=== PATIENT | female | born 1980 | race Caucasian/White ===

== ENCOUNTER 2016-09-08 16:03 | Emergency (ER) | payer SELFPAY ==
[~2016-09-08] VITALS: Ht 154.9 cm; Wt 47.7 kg
[~2016-09-08 16:03] MED LIST: METR-1 PO
[2016-09-08 16:50] VITALS: BP 103/69; PULSE 66; RESP 20; TEMP 98.3; O2SAT 100
--- NOTE | 2016-09-08 17:23 | PD ---
HPI Chief Complaint: Musculoskeletal Complaint Time Seen by Provider: 17:07 Travel History International Travel<30 days: No Contact w/Intl Traveler<30days: No Traveled to known affect area: No History of Present Illness HPI The patient was seen and examined in the presence of the nurse. She complains of a left hand pain. She says she fell at one month ago and developed swelling to the third and fourth fingers. She did not get it evaluated but still it persists with swelling and pain. Also she reports some vaginal discharge that she is sure is bacterial vaginosis. She says she's had it before and symptoms of the same and she requests metronidazole treatment. Severity is mild to moderate. PFSH Past Medical History : 4 Para: 3 : 1 Past Surgical History Abdominal Surgery: Yes (RIGHT LUNG PARTIALLY REMOVED) Social History Alcohol Use: No Tobacco Use: No Substance Use: No (MARIJUANA OCC) Allergies-Medications (Allergen,Severity, Reaction): Coded Allergies: Codeine (Verified Allergy, Severe, Swelling, 09/08/16) Reported Meds & Prescriptions Reported Meds & Active Scripts Active Flagyl (Metronidazole) 500 Mg Tab 500 Mg PO BID 7 Days TAKE UNTIL GONE Review of Systems General / Constitutional: No: Fever HENT: No: Headaches Cardiovascular: No: Chest Pain or Discomfort Physical Exam Narrative GASTROINTESTINAL: Abdomen soft, non-tender, nondistended. Positive bowel sounds. No hepato-splenomegaly, or palpable masses. No guarding. SKIN: Inspection shows no rash or ulcers. Palpation shows no induration or nodules. Left hand: There is some swelling tenderness to the third and fourth PIP joint area. Left hand is neurovascularly intact. Data Data Last Documented VS Vital Signs Date Time Temp Pulse Resp B/P Pulse Ox O2 Delivery O2 Flow Rate FiO2 09/08/16 16:50 98.3 66 20 103/69 100 Orders Hand, Complete ([id number]) (09/08/16 ) MDM Medical Decision Making Medical Screen Exam Complete: Yes Emergency Medical Condition: Yes Medical Record Reviewed: Yes Differential Diagnosis hAnd fracture, soft tissue injury of the hand, vaginitis Narrative Course I have reviewed the patient's electronic medical record. I recommended and ordered and she initially agreed to hand x-ray. She later refused and it was canceled. Recommending hand physician follow-up for that Decline pelvic exam and just wanted a prescription for metronidazole She is aware can't verify that is what is really going on or rule out other issues. She denies and does not want any testing done Diagnosis Primary Impression: Injury of left hand Qualified Code: S69.92XA - Injury of left hand, initial encounter Additional Impression: Vaginitis Qualified Code: N76.0 - Acute vaginitis Additional Instructions: The patient was advised to follow up with their physician and return if they worsen. Med/Other Pt SpecificInfo: Prescription(s) given Disposition: 01 DISCHARGE HOME Condition: Stable Erik Aguilera MD Sep 08, 2016 17:23
[2016-09-08] MEDS ORDERED: METR-1 PO (17:26)
== END 2016-09-08 17:30 | disposition home or self-care (01) ==
LOC: PHED 16:03
DX: S69.92XA Unspecified injury of left wrist, hand and finger(s), initial encounter (principal); N76.0 Acute vaginitis; W19.XXXA Unspecified fall, initial encounter
CPT/HCPCS: 73130; 99283

== ENCOUNTER 2016-12-14 18:41 | Inpatient (IN) | payer SELFPAY ==
[2016-12-13 23:45] VITALS: BP 95/60; PULSE 85; RESP 17; TEMP 97.1; O2SAT 99
[~2016-12-14] VITALS: Ht 157.5 cm; Wt 52.0 kg
[2016-12-14 18:44] VITALS: BP 122/75; PULSE 103; RESP 16; TEMP 98.1; O2SAT 100
--- NOTE | 2016-12-14 19:36 | PD ---
Physical Exam Date Seen by Provider: Dec 14, 2016 Time Seen by Provider: 19:31 Narrative 36 YOWF C/O 3 DAYS OF DYSURIA AND HEMATURIA. NOW N/V, PAIN UP INTO HER CHEST. POS FEVER/CHILLS , WEAKNESS,BACK PAIN. D/C FROM [facility] 10 DAYS AGO FOR SIMILAR SYMPTOMS VS NOTED. PT AWAITING BED PLACEMENT Data Data Last Documented VS Vital Signs Date Time Temp Pulse Resp B/P Pulse Ox O2 Delivery O2 Flow Rate FiO2 12/14/16 18:44 98.1 103 16 122/75 100 MDM Medical Record Reviewed: Yes Supervised Visit with PHILOMENA: Yes Bjorn Batista Dec 14, 2016 19:36
--- NOTE | 2016-12-14 19:51 | PD ---
HPI Chief Complaint: Complaint Time Seen by Provider: 19:47 Travel History International Travel<30 days: No Contact w/Intl Traveler<30days: No Traveled to known affect area: No History of Present Illness HPI The patient is a 36 year old female who presents to the [facility] emergency department with a history of reportedly beginning to feel ill 3 days ago. She reports that she's had bilateral flank pain that is 10 out of 10 in severity, dysuria, hematuria, urinary urgency, and frequency. Her past recent history is, located by being admitted for 10 days at [facility], discharged sometime around November 30. She reports that she was admitted for an infection and elevated white blood cell count. She was not discharged on antibiotic as she completed the antibiotic in the hospital. The patient reports that today she began to have nausea and vomiting. She reports that she' s had vomiting 5-6 times today. She reports that she began to have a fever today, MAXIMUM TEMPERATURE of 101.2. She reports having chronic issues with constipation, however she did move her bowels in small amount today. She denies having any diarrhea. She denies having any cough or congestion. She denies having any sore throat. She reports on review of systems that she has had some ear pain bilaterally. The patient denies any recent fevers, cough, congestion, neck pain, chest pain, shortness of breath, or neurologic symptoms. 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 The patient reports that this was a complication related to IV drug use many years ago. Diminished Hearing: No Pneumonia: Yes ?: Not LMP: 11/23/16 : 4 Para: 3 : 1 Past Surgical History Narrative Surgical The patient's past surgical history is significant for a partial lobectomy on the right. Abdominal Surgery: Yes (RIGHT LUNG PARTIALLY REMOVED) Social History Alcohol Use: No Tobacco Use: No Substance Use: No (MARIJUANA OCC, reported prior history of IV drug use many years ago) Allergies-Medications (Allergen,Severity, Reaction): Coded Allergies: Codeine (Verified Allergy, Severe, Swelling, 12/14/16) Reported Meds & Prescriptions Reported Meds & Active Scripts Active None. Review of Systems Except as stated in HPI: all other systems reviewed are Neg General / Constitutional: Positive: Fever, Chills Eyes: No: Visual changes HENT: Positive: Earache (bilateral), No: Headaches, Sore Throat, Rhinorrhea, Congestion, Neck Stiffness, Neck Pain Cardiovascular: No: Chest Pain or Discomfort, Dyspnea on exertion Respiratory: No: Shortness of Breath Gastrointestinal: No: Abdominal Pain Genitourinary: Positive: Urgency, Frequency, Dysuria, Hematuria, Flank Pain Musculoskeletal: No: Pain Skin: No Rash Neurologic: No: Weakness, Focal Abnormalities, Change in Mentation, Slurred Speech, Sensory Disturbance Psychiatric: No: Depression Endocrine: No: Polydipsia Hematologic/Lymphatic: No: Easy Bruising Physical Exam Narrative General: The patient is a well-developed well-nourished female in no acute distress. Head and Neck exam: Head is normocephalic atraumatic. Eyes: EOMI, pupils are equal round and reactive to light. Nose: Midline septum with pink mucous membranes Mouth: Dentition unremarkable. Moist mucus membranes. Posterior oropharynx is not erythematous. No tonsillar hypertrophy. Uvula midline. Airway patent. Ears: Bilateral tympanic membranes are pearly with a good cone of light, no erythema or exudate. External auditory canals shows no erythema or edema, no drainage. Neck: No palpable lymphadenopathy. No nuchal rigidity. No thyromegaly. Cardiovascular: Sinus tachycardia in the 1 teens without murmurs, gallops, or rubs. No pulse deficit to the extremities on simultaneous auscultation and palpation of her radial artery. Lungs: Clear to auscultation bilaterally. No wheezes, rhonchi, or rales. Abdomen: Soft, without tenderness to palpation in all 4 quadrants of the abdomen. No guarding, rebound, or rigidity. Normal bowel sounds are audible. No tenderness on palpation of McBurney's point. Negative [place] sign. Extremities: No clubbing, cyanosis, or edema. No calf tenderness on palpation. Back: No spinous process tenderness to palpation. No costovertebral angle tenderness to palpation. Neurologic Exam: Grossly nonfocal. Skin Exam: No rash noted. Intact skin that is warm and dry. The patient has older appearing track mendez in bilateral antecubital fossa. Data Data Last Documented VS Vital Signs Date Time Temp Pulse Resp B/P Pulse Ox O2 Delivery O2 Flow Rate FiO2 12/14/16 21:46 96 18 117/73 99 Room Air 12/14/16 19:56 101.2 Orders Electrocardiogram (12/14/16 19:54) Complete Blood Count With Diff (12/14/16 19:54) Comprehensive Metabolic Panel (12/14/16 19:54) Blood Culture (12/14/16 19:54) C-Reactive Protein (Crp) (12/14/16 19:54) Lipase (12/14/16 19:54) Urinalysis - C+S If Indicated (12/14/16 19:54) Westergren Sedimentation Rate (12/14/16 19:54) Magnesium (Mg) (12/14/16 19:54) Chest, Single Ap (12/14/16 19:54) Iv Access Insert/Monitor (12/14/16 19:54) Ecg Monitoring (12/14/16 19:54) Oximetry (12/14/16 19:54) Ed Urine Pregnancytest Poc (12/14/16 19:54) Drug Screen, Random Urine (12/14/16 19:54) Lactic Acid Sepsis Protocol (12/14/16 19:54) Sodium Chlor 0.9% 1000 Ml Inj (Ns 1000 M (12/14/16 20:15) Ondansetron Inj (Zofran Inj) (12/14/16 20:15) Acetaminophen (Tylenol) (12/14/16 20:15) Piperacil-Tazo 3.375 Gm Premix (Zosyn 3. (12/14/16 20:15) Vancomycin Inj (Vancomycin Inj) (12/14/16 20:15) Ct Abd/Pel W/O Iv Contrast (12/14/16 20:05) Urine Culture (12/14/16 20:30) Sodium Chlor 0.9% 1000 Ml Inj (Ns 1000 M (12/14/16 21:30) Admit Order (Ed Use Only) (12/14/16 21:43) Labs Laboratory Tests Test 12/14/16 20:30 Erythrocyte Sedimentation Rate 28 mm/hr Sodium Level 135 MEQ/L Potassium Level 3.8 MEQ/L Chloride Level 101 MEQ/L Carbon Dioxide Level 25.1 MEQ/L Anion Gap 9 MEQ/L Blood Urea Nitrogen 7 MG/DL Creatinine 0.76 MG/DL Estimat Glomerular Filtration 85 ML/MIN Rate Random Glucose 124 MG/DL Lactic Acid Level 2.8 mmol/L Calcium Level 8.5 MG/DL Magnesium Level 1.5 MG/DL Total Bilirubin 0.4 MG/DL Aspartate Amino Transf 24 U/L (AST/SGOT) Alanine Aminotransferase 50 U/L (ALT/SGPT) Alkaline Phosphatase 107 U/L C-Reactive Protein 11.00 MG/DL Total Protein 6.9 GM/DL Albumin 2.9 GM/DL Lipase 35 U/L Urine Opiates Screen POS Urine Barbiturates Screen NEG Urine Amphetamines Screen NEG Urine Benzodiazepines Screen NEG Urine Cocaine Screen NEG Urine Cannabinoids Screen POS White Blood Count 20.1 TH/MM3 Red Blood Count 3.76 MIL/MM3 Hemoglobin 10.4 GM/DL Hematocrit 30.4 % Mean Corpuscular Volume 80.7 FL Mean Corpuscular Hemoglobin 27.6 PG Mean Corpuscular Hemoglobin 34.2 % Concent Red Cell Distribution Width 15.1 % Platelet Count 216 TH/MM3 Mean Platelet Volume 9.1 FL Neutrophils (%) (Auto) 87.2 % Lymphocytes (%) (Auto) 4.5 % Monocytes (%) (Auto) 8.0 % Eosinophils (%) (Auto) 0.1 % Basophils (%) (Auto) 0.2 % Neutrophils # (Auto) 17.6 TH/MM3 Lymphocytes # (Auto) 0.9 TH/MM3 Monocytes # (Auto) 1.6 TH/MM3 Eosinophils # (Auto) 0.0 TH/MM3 Basophils # (Auto) 0.0 TH/MM3 CBC Comment AUTO DIFF Differential Comment AUTO DIFF CONFIRMED Platelet Estimate NORMAL Platelet Morphology Comment NORMAL Red Cell Morphology Comment NORMAL Urine Color YELLOW Urine Turbidity HAZY Urine pH 6.5 Urine Specific [place] 1.013 Urine Protein 100 mg/dL Urine Glucose (UA) NEG mg/dL Urine Ketones NEG mg/dL Urine Occult Blood SMALL Urine Nitrite POS Urine Bilirubin NEG Urine Urobilinogen LESS THAN 2.0 MG/DL Urine Leukocyte Esterase LARGE Urine RBC 27 /hpf Urine WBC /hpf Urine WBC Clumps FEW Urine Squamous Epithelial 1 /hpf Cells Urine Transitional Epithelial 1 /hpf Cells Urine Bacteria MOD /hpf Urine Mucus FEW /lpf Urine Yeast (Budding) OCC Microscopic Urinalysis Comment CULTURE INDICATED MDM Medical Decision Making Medical Screen Exam Complete: Yes Emergency Medical Condition: Yes Medical Record Reviewed: Yes Interpretation(s) Last Impressions Abdomen/Pelvis CT 12/14/162004 Signed Impressions: Service Date/Time: Wednesday, December 14, 2016 22:32 - CONCLUSION: 1. No acute findings identified within the abdomen and pelvis. Specifically no hydronephrosis or renal calculi are seen. There is mild constipation. Bjorn Cade MD Chest X-Ray 12/14/161953 Signed Impressions: Service Date/Time: Wednesday, December 14, 2016 19:52 - CONCLUSION: 1. No active disease. Bjorn Cade MD Differential Diagnosis Sepsis related to pyelonephritis, versus pneumonia, versus sepsis of undetermined cause, versus pyelonephritis uncomplicated, versus cystitis Narrative Course During the course of the patients emergency department visit, the patients history, examination, and differential diagnosis were reviewed with the patient. The patient had IV access obtained and blood work sent for analysis. The patient was placed on a quality assurance monitor with oximetry and blood pressure monitoring. The patient had an EKG done on arrival that shows a sinus tachycardia rate of 105, nonspecific ST abnormalities, no elevation is noted, no depression noted. T waves are inverted in V1. A review the patient's electronic medical record reveals that the patient had a UTI positive for Escherichia coli was salguero sensitive in September 2016. The patient was provided normal saline 1 L IV fluid bolus. The patient was started on vancomycin 1 g IV, Zosyn 3.375 g IV. The patients laboratory studies were reviewed and remarkable for a white count of 20.1, hemoglobin 10.4, platelets 216 with 87.2 neutrophils, lymphocytes 4.5. Sodium is 135, glucose 124, C-reactive protein is 11, lipase 35, urinalysis shows positive nitrite and large leukocyte esterase 27 RBCs wbc's enumerable with few clumps and moderate bacteria, culture indicated. Lactic acid is 2.8. The patient was given a second liter of normal saline IV fluids. A bedside test was negative. Radiology studies were reviewed and remarkable for a chest x-ray that shows no acute abnormality. CT scan of the abdomen and pelvis showed no acute abnormality, constipation noted. The patient has positive Sirs criteria and sepsis criteria with the source of pyelonephritis. The patient's results were discussed with the patient, including the plan of care. I explained that further testing and/ or monitoring is indicated based on the patients history, examination, and/ or laboratory findings. Therefore, I recommended admission for additional evaluation. The patient expressed understanding and was agreeable with this plan. The patient was admitted to the hospital in guarded condition and [facility] Sepsis Criteria SIRS Criteria (2 or more): Temp > 100.9 or < 96.8, Heart rate over 90, WBC > 31167, < 4000 or > 10% bands Sepsis Criteria (SIRS+source): Infect source susp/known Criteria Outcome: Meets SIRS criteria, Meets sepsis criteria Physician Communication Physician Communication The patient's case was discussed with Dr. Pereira who did agree to admit the patient for further evaluation and treatment at this time. Diagnosis Primary Impression: Pyelonephritis Additional Impression: Sepsis Qualified Code: A41.9 - Sepsis, due to unspecified organism Admitting Information Admitting Physician Requests: it Lyric Ramirez MD Dec 14, 2016 19:51
[2016-12-14 19:56] VITALS: BP 117/73; PULSE 110; RESP 16; TEMP 101.2; O2SAT 99
[2016-12-14] MEDS ORDERED: ACETAMINOPHEN 325 MG TAB PO ONE (20:15)
[2016-12-14] MEDS ORDERED: SODIUM CHLOR 0.9% 1000 ML INJ 1,000 ML IV ONE ×2 (20:15→21:30)
[2016-12-14] MEDS ORDERED: ONDANSETRON HCL 4 MG/2 ML VIAL IV ONE (20:15)
[2016-12-14] MEDS ORDERED: VANCOMYCIN INJ 1,000 MG in SODIUM CHLOR 0.9% 250 ML INJ 250 ML IV ONE (20:15)
[2016-12-14] MEDS ORDERED: PIPERACIL-TAZO 3.375 GM PREMIX 50 ML IV ONE (20:15)
--- NOTE | 2016-12-14 20:28 | RADRPT ---
EXAM DATE/TIME: 12/14/2016 19:52 [facility] COMPARISON: No previous studies available for comparison. INDICATIONS : Shortness of breath, chest pain, and fever. MEDICAL HISTORY : None. SURGICAL HISTORY : None. ENCOUNTER: Initial ACUITY: 1 day PAIN SCORE: 10/10 LOCATION: Bilateral chest FINDINGS: A single view of the chest demonstrates the lungs to be symmetrically aerated without evidence of mas s, infiltrate or effusion. The cardiomediastinal contours are unremarkable. Osseous structures are intact. CONCLUSION: 1. No active disease. Bjorn Cade MD on December 14, 2016 at 20:25 Board Certified Radiologist. This report was verified electronically.
[2016-12-14 20:54] LABS: AUTOMATED NEUTROPHIL # 17.6 TH/MM3 (1.8-7.7); BASOPHIL % 0.2 % (0.0-2.0); EOSINOPHIL % 0.1 % (0.0-4.0); HEMATOCRIT 30.4 % (35.0-46.0); LYMPH % 4.5 % (9.0-44.0); LYMPHOCYTE # 0.9 TH/MM3 (1.0-4.8); MEAN CELL VOLUME 80.7 FL (80.0-100.0); MEAN CORPUSCULAR HEMOGLOBIN 27.6 PG (27.0-34.0); MEAN CORPUSCULAR HGB CONC 34.2 % (32.0-36.0); NEUT % 87.2 % (16.0-70.0); PLATELET COUNT 216 TH/MM3 (150-450); RED BLOOD COUNT 3.76 MIL/MM3 (4.00-5.30); RED CELL DISTRIBUTION WIDTH 15.1 % (11.6-17.2); WHITE BLOOD COUNT 20.1 TH/MM3 (4.0-11.0)
[2016-12-14 20:57] LABS: HEMO FLAGS AUTO DIFF
[2016-12-14 21:15] LABS: AMPHETAMINE, URINE NEG (NEG); BACTERIA, URINE MOD /hpf; BARBITURATES, URINE NEG (NEG); BLOOD, URINE SMALL (NEG); COCAINE, URINE NEG (NEG); COMMENT (UR) CULTURE INDICATED; CULTURE IF INDICATED CULTURE INDICATED; GLUCOSE,URINE NEG (NEG); KETONE, URINE NEG (NEG); MUCUS URINE FEW /lpf (OCC); NITRITE,URINE POS (NEG); PH, URINE 6.5 (5.0-8.5); SQUAMOUS EPITHELIAL CELL URINE 1 /hpf (0-5); TRANSITIONAL EPI CELLS, URINE 1 /hpf; URINE COLOR YELLOW (YELLW/STRAW)
[2016-12-14 21:19] LABS: ANION GAP 9 MEQ/L (5-15); AST (GOT) 24 U/L (15-37); BICARBONATE 25.1 MEQ/L (21.0-32.0); BLOOD UREA NITROGEN 7 MG/DL (7-18); CHLORIDE 101 MEQ/L (98-107); GLOMERULAR FILTRATION RATE 85 ML/MIN (>89); MAGNESIUM 1.5 MG/DL (1.5-2.5); POTASSIUM 3.8 MEQ/L (3.5-5.1); SODIUM (NA) 135 MEQ/L (136-145)
[2016-12-14 21:24] LABS: ALKALINE PHOSPHATASE 107 U/L (45-117); ALT (GPT) 50 U/L (10-53); TOTAL BILIRUBIN ADULT 0.4 MG/DL (0.2-1.0)
[2016-12-14 21:37] LABS: PLATELET ESTIMATE SMEAR NORMAL (NORMAL); PLATELET MORPHOLOGY NORMAL (NORMAL); SCAN/DIFF AUTO DIFF CONFIRMED
[2016-12-14 21:46] VITALS: BP 117/73; PULSE 96; RESP 18; O2SAT 99
[2016-12-14] MEDS ORDERED: SODIUM CHLORIDE 0.9% FLUSH 10 ML FLUSH IV FLUSH PRN (22:00)
[2016-12-14] MEDS ORDERED: ONDANSETRON HCL 4 MG/2 ML VIAL IVP PRN (22:00)
[2016-12-14] MEDS ORDERED: ACETAMINOPHEN 325 MG TAB PO PRN (22:00)
--- NOTE | 2016-12-14 22:02 | HHI.HP ---
HPI Service [facility] Primary Care Physician No Primary Care Physician Admission Diagnosis pyelonephritis, sepsis Diagnoses: (1) Sepsis Diagnosis: Principal (2) Pyelonephritis Diagnosis: Principal (3) Lactic acidosis Diagnosis: Principal Travel History International Travel<30 Days: No Contact w/Intl Traveler <30 Da: No Traveled to Known Affected Are: No History of Present Illness This is a 36-year-old female with a PMH Recurrent UTI and h/o IVDU who presented to the ER w/ complaints of severe abdominal pain, nausea/vomiting and fever or 101.2. States she was recently hospitalized in [place] for similar complaints for 10 days and treated for UTI. States not d/c'd on antibiotics. Today, noted to have recurrent abdominal pain and fever. Denies recent IVDU. On arrival, BP 122/75, HR 103, O2 sat 100% on RA, Temp 101.2. WBC 20.1. Lactic Acid 2.8. U/a w/ significant UTI. Urine Drug Screen positive for Opiates and Marijuana. S/p Blood Cultures, Vanc/Zosyn in ER. CT Abd/Pelvis currently pending. Review of Systems Except as stated in HPI: all other systems reviewed are Neg ROS: 14 point review of systems otherwise negative. Past Family Social History Past Medical History PMH: Recurrent UTI and h/o IVDU Past Surgical History PAST SURGICAL HISTORY: Partial Lobectomy Allergies: Coded Allergies: Codeine (Verified Allergy, Severe, Swelling, 12/14/16) Family History PAST FAMILY HISTORY: Reviewed. No h/o DM or CAD Social History PAST SOCIAL HISTORY: Negative for alcohol or tobacco. History of IVDU, positive for Marijuana. Physical Exam Vital Signs Vital Signs Date Time Temp Pulse Resp B/P Pulse Ox O2 Delivery O2 Flow Rate FiO2 12/14/16 21:46 96 18 117/73 99 Room Air 12/14/16 19:56 101.2 110 16 117/73 99 Room Air 12/14/16 18:44 98.1 103 16 122/75 100 Physical Exam PE: GENERAL: Middle-aged white female, no acute distress, however very tearful secondary to complaints of pain. HEENT: PERRLA, EOMI. No scleral icterus or conjunctival pallor. No lid lag or facial droop. CARDIOVASCULAR: Regular rate and rhythm. No obvious murmurs to auscultation. No chest tenderness to palpation. RESPIRATORY: No obvious rhonchi or wheezing. Clear to auscultation. Breath sounds equal bilaterally. GASTROINTESTINAL: Abdomen soft, non-tender, nondistended. BS normal. MUSCULOSKELETAL: Extremities without clubbing, cyanosis, or edema. No obvious deformities. NEUROLOGICAL: Awake, alert and oriented x4. No focal neurologic deficits. Moving both upper and lower extremities spontaneously. Laboratory Laboratory Tests Test 12/14/16 20:30 White Blood Count 20.1 Red Blood Count 3.76 Hemoglobin 10.4 Hematocrit 30.4 Mean Corpuscular Volume 80.7 Mean Corpuscular Hemoglobin 27.6 Mean Corpuscular Hemoglobin 34.2 Concent Red Cell Distribution Width 15.1 Platelet Count 216 Mean Platelet Volume 9.1 Neutrophils (%) (Auto) 87.2 Lymphocytes (%) (Auto) 4.5 Monocytes (%) (Auto) 8.0 Eosinophils (%) (Auto) 0.1 Basophils (%) (Auto) 0.2 Neutrophils # (Auto) 17.6 Lymphocytes # (Auto) 0.9 Monocytes # (Auto) 1.6 Eosinophils # (Auto) 0.0 Basophils # (Auto) 0.0 CBC Comment AUTO DIFF Differential Comment AUTO DIFF CONFIRMED Platelet Estimate NORMAL Platelet Morphology Comment NORMAL Red Cell Morphology Comment NORMAL Urine Color YELLOW Urine Turbidity HAZY Urine pH 6.5 Urine Specific [place] 1.013 Urine Protein 100 Urine Glucose (UA) NEG Urine Ketones NEG Urine Occult Blood SMALL Urine Nitrite POS Urine Bilirubin NEG Urine Urobilinogen LESS THAN 2.0 Urine Leukocyte Esterase LARGE Urine RBC 27 Urine WBC Urine WBC Clumps FEW Urine Squamous Epithelial 1 Cells Urine Transitional Epithelial 1 Cells Urine Bacteria MOD Urine Mucus FEW Urine Yeast (Budding) OCC Microscopic Urinalysis Comment CULTURE INDICATED Sodium Level 135 Potassium Level 3.8 Chloride Level 101 Carbon Dioxide Level 25.1 Anion Gap 9 Blood Urea Nitrogen 7 Creatinine 0.76 Estimat Glomerular Filtration 85 Rate Random Glucose 124 Lactic Acid Level 2.8 Calcium Level 8.5 Magnesium Level 1.5 Total Bilirubin 0.4 Aspartate Amino Transf 24 (AST/SGOT) Alanine Aminotransferase 50 (ALT/SGPT) Alkaline Phosphatase 107 C-Reactive Protein 11.00 Total Protein 6.9 Albumin 2.9 Lipase 35 Urine Opiates Screen POS Urine Barbiturates Screen NEG Urine Amphetamines Screen NEG Urine Benzodiazepines Screen NEG Urine Cocaine Screen NEG Urine Cannabinoids Screen POS Date/Time Procedure Status Source Growth 12/14/16 20:35 Aerobic Blood Culture Received Blood Peripheral Pending 12/14/16 20:35 Anaerobic Blood Culture Received Blood Peripheral Pending 12/14/16 20:30 Urine Culture Received Urine Random Urine Pending Result Diagram: 12/14/16202912/14/162029 Assessment and Plan Problem List: (1) Sepsis ICD Code: A41.9 Status: Acute (2) Pyelonephritis ICD Code: N12 Status: Acute (3) Lactic acidosis ICD Code: E87.2 Status: Acute Assessment and Plan A/P: 1. Sepsis: Temp 101.2, WBC 20, HR 103, Source-UTI. S/p Blood/Urine Cultures, Vanc/Zosyn. Follow up cultures, continue IV Abx, IVF for hydration. 2. Pyelonephritis: recent admit to [place] x10 days due to what sounds like sepsis/UTI, records from [place] pending. CT Abd/Pelvis ordered, pending results. Will follow. Continue w/ IV Abx as above. Analgesics/ antiemetics as needed. 3. Lactic Acidosis: Lactate 2.8, secondary to sepsis/dehydration. Will repeat Lactate per Sepsis Protocol. 4. DVT Prophylaxis: SCD/Teds. 5. Social work for d/c planning as needed. 6. Case discussed w/ ER physician at length. Physician Certification 2 Midnight Certification Type: Admission for Inpatient Services Order for Inpatient Services The services are ordered in accordance with Medicare regulations or non- Medicare payer requirements, as applicable. In the case of services not specified as inpatient-only, they are appropriately provided as inpatient services in accordance with the 2-midnight benchmark. Estimated LOS (days): 2 days is the estimated time the patient will need to remain in the hospital, assuming treatment plan goals are met and no additional complications. Post-Hospital Plan: Not yet determined Linda Pereira MD Dec 14, 2016 22:02
[2016-12-14 22:46] LABS: LACTIC ACID GHOST NOT REPORTABLE
[2016-12-14] MEDS: MORPHINE SULFATE 4 MG/ML INJ IV PRN (22:48)
[2016-12-14] MEDS: SODIUM CHLOR 0.9% 1000 ML INJ 1,000 ML IV SCH (22:49)
--- NOTE | 2016-12-14 22:49 | RADRPT ---
EXAM DATE/TIME: 12/14/2016 22:32 [facility] COMPARISON: No previous studies available for comparison. INDICATIONS : Bilateral flank pain with hematuria and vomiting. ORAL CONTRAST: No oral contrast ingested. RADIATION DOSE: 3.50 CTDIvol (mGy) MEDICAL HISTORY : Substance abuse. SURGICAL HISTORY : Right lower lung partially removed. ENCOUNTER: Initial ACUITY: 1 day PAIN SCALE: 6/10 LOCATION: Bilateral flank TECHNIQUE: Volumetric scanning of the abdomen and pelvis was performed. Using automated exposure control and ad justment of the mA and/or kV according to patient size, radiation dose was kept as low as reasonably achievable to obtain optimal diagnostic quality images. FINDINGS: Lung bases are clear. No acute findings identified in the liver, spleen, adrenals, kidneys or pancrea s. There is mild constipation. No free air or free fluid. No bowel obstruction. CONCLUSION: 1. No acute findings identified within the abdomen and pelvis. Specifically no hydronephrosis or [place] l calculi are seen. There is mild constipation. Bjorn Cade MD on December 14, 2016 at 22:44 Board Certified Radiologist. This report was verified electronically.
[2016-12-14 23:31] VITALS: TEMP 99.8
[2016-12-15] MEDS: MORPHINE SULFATE 4 MG/ML INJ IV PRN ×5 (03:33→17:17)
[2016-12-15 05:34] LABS: AUTOMATED NEUTROPHIL # 13.6 TH/MM3 (1.8-7.7); BASOPHIL % 0.2 % (0.0-2.0); EOSINOPHIL # 0.1 TH/MM3 (0-0.4); EOSINOPHIL % 0.4 % (0.0-4.0); HEMATOCRIT 28.8 % (35.0-46.0); HEMO FLAGS DIFF FINAL; LYMPH % 12.6 % (9.0-44.0); LYMPHOCYTE # 2.3 TH/MM3 (1.0-4.8); MEAN CELL VOLUME 84.2 FL (80.0-100.0); MEAN CORPUSCULAR HGB CONC 32.1 % (32.0-36.0); MONO % 11.7 % (0.0-8.0); NEUT % 75.1 % (16.0-70.0); PLATELET COUNT 151 TH/MM3 (150-450); RED BLOOD COUNT 3.42 MIL/MM3 (4.00-5.30); RED CELL DISTRIBUTION WIDTH 15.2 % (11.6-17.2); WHITE BLOOD COUNT 18.1 TH/MM3 (4.0-11.0)
[2016-12-15] MEDS: ACETAMINOPHEN/HYDROcodone 325 MG/7.5 MG TAB PO PRN ×3 (05:55→18:52)
[2016-12-15 05:57] LABS: ALKALINE PHOSPHATASE 100 U/L (45-117); ALT (GPT) 43 U/L (10-53); ANION GAP 5 MEQ/L (5-15); AST (GOT) 25 U/L (15-37); BICARBONATE 27.2 MEQ/L (21.0-32.0); BLOOD UREA NITROGEN 5 MG/DL (7-18); CHLORIDE 110 MEQ/L (98-107); GLOMERULAR FILTRATION RATE 135 ML/MIN (>89); SODIUM (NA) 142 MEQ/L (136-145); TOTAL BILIRUBIN ADULT 0.3 MG/DL (0.2-1.0)
[2016-12-15 06:00] VITALS: BP 110/75; PULSE 95; RESP 17; TEMP 98.3; O2SAT 100
[2016-12-15] MEDS: SODIUM CHLOR 0.9% 1000 ML INJ 1,000 ML IV SCH ×3 (07:50→21:02)
[2016-12-15] MEDS: SODIUM CHLORIDE 0.9% FLUSH 10 ML FLUSH IV FLUSH SCH ×2 (07:56→21:02)
[2016-12-15 08:00] VITALS: BP 107/69; PULSE 105; RESP 16; TEMP 98.7; O2SAT 98
[2016-12-15] MEDS ORDERED: CEFEPIME INJ 1,000 MG in SODIUM CHLORIDE 0.9% INJ 100 ML IV SCH (09:00)
[2016-12-15] MEDS: BISACODYL 10 MG SUPP RECTAL PRN (10:56)
[2016-12-15 12:00] VITALS: BP 108/75; PULSE 67; RESP 16; TEMP 98.4; O2SAT 100
[2016-12-15] MEDS: cefTRIAXone INJ 1,000 MG in SODIUM CHLORIDE 0.9% INJ 100 ML IV SCH (12:29)
[2016-12-15] MEDS ORDERED: PILL SPLITTER OTHER PRN (12:30)
[2016-12-15] MEDS ORDERED: ACETAMINOPHEN 325 MG TAB PO PRN (12:45)
[2016-12-15] MEDS ORDERED: FLUCONAZOLE 100 MG TAB PO ONE (13:00)
--- NOTE | 2016-12-15 13:01 | HHI.PR ---
Subjective Remarks Following patient for pyelonephritis and sepsis. Patient complaint of continued headache and bilateral flank pain, more on right side. No further fever or chills. Feels a little bit improved today. She states that morphine doesn't help much, requesting [place] for flank pain. She reports a history of IV drug abuse, last used in 2004, none currently. The patient was recently admitted at the hospital in [place]. She states that she had been having body aches as she went to the emergency department, found to have a high white blood cell count, and was admitted there for about 3 days, received antibiotics. She states that during that admission she did not have any urinary complaints. However, after she was discharged, she began having burning with urination and bilateral flank pain, which caused her to present here. Objective Vitals Vital Signs Date Time Temp Pulse Resp B/P Pulse Ox O2 Delivery O2 Flow Rate FiO2 12/15/16 12:00 98.4 67 16 108/75 100 12/15/16 08:00 98.7 105 16 107/69 98 12/15/16 06:00 98.3 95 17 110/75 100 12/14/16 23:31 99.8 100 16 98 12/14/16 21:46 96 18 117/73 99 Room Air 12/14/16 19:56 101.2 110 16 117/73 99 Room Air 12/14/16 18:44 98.1 103 16 122/75 100 I/O 12/14/16 12/14/16 12/14/16 12/15/16 12/15/16 12/15/16 07:00 15:00 23:00 07:00 15:00 23:00 Intake Total 240 ml 990 ml 667 ml Output Total 200 ml Balance 40 ml 990 ml 667 ml Intake Oral 240 ml 240 ml IV Total 750 ml 667 ml Output Urine Total 200 ml # Voids 2 Result Diagram: 12/15/16 0435 12/15/16434 Imaging Last Impressions Abdomen/Pelvis CT 12/14/162004 Signed Impressions: Service Date/Time: Wednesday, December 14, 2016 22:32 - CONCLUSION: 1. No acute findings identified within the abdomen and pelvis. Specifically no hydronephrosis or renal calculi are seen. There is mild constipation. Bjorn Cade MD Chest X-Ray 12/14/161953 Signed Impressions: Service Date/Time: Wednesday, December 14, 2016 19:52 - CONCLUSION: 1. No active disease. Bjorn Cade MD Objective Remarks GENERAL: Well-developed well-nourished. In no acute distress. SKIN: Warm and dry. No lesions noted. HEENT: Normocephalic. Pupils equal and round. Mucous membranes pink and moist. CARDIOVASCULAR: Regular rate and rhythm. No murmur appreciated. RESPIRATORY: No accessory muscle use. Clear to auscultation. Breath sounds equal bilaterally. GASTROINTESTINAL: Abdomen soft, non-tender, nondistended. Bowel sounds x4. Bilateral CVA tenderness. MUSCULOSKELETAL: No obvious deformities. No clubbing or cyanosis. No edema. NEUROLOGICAL: Awake and alert. No focal neurological deficits. Moves upper and lower extremities spontaneously. Normal speech. PSYCHIATRIC: Appropriate mood and affect; insight and judgment normal. A/P Problem List: (1) Sepsis ICD Code: A41.9 Status: Acute (2) Pyelonephritis ICD Code: N12 Status: Acute (3) Lactic acidosis ICD Code: E87.2 Status: Acute Assessment and Plan 36-year-old female with a H Recurrent UTI and h/o IVDU who presented w/ complaints of abdominal pain, nausea/vomiting and fever: Sepsis: Temp 101.2, WBC 20, HR 103, Source-UTI. Initial lactic acid 2.8, now 1.2. Blood cultures with NGTD. Urine culture pending. Received Vanc/Zosyn in the ED as well as cefepime overnight. Continue Ceftriaxone 1g Q24 hours, Diflucan 150mg PO x 1. Continue IVF for hydration. Pyelonephritis: CT Abd/Pelvis reviewed with no acute findings, no hydronephrosis or renal calculi. Continue w/ IV Abx as above. Adjust analgesics - continue [place] 7.5 mg for pain scale, Tylenol for headache, and morphine for breakthrough pain. Continue antiemetics as needed. DVT Prophylaxis: SCD/Teds. Written by Tod Tovar, acting as scribe for Dr. Lutz on 12/15/16 at 12:51. All or portions of this note were transcribed by scribe ASHLEIGH Hilliard. I, Dr. Jaime Lutz personally performed the history, physical exam, and medical decision making; and confirmed the accuracy of the information in the transcribed note. Authenticated by Dr. Jaime Lutz on 12/16/16 at 00:19. Discharge Planning Continue IV antibiotics and follow-up cultures and for clinical improvement. Problem Qualifiers (1) Sepsis: Qualified Code: A41.9 - Sepsis, due to unspecified organism Tod Tovar Dec 15, 2016 13:01 Rosa Lutz DO Dec 16, 2016 00:19
--- NOTE | 2016-12-15 13:57 | EKG ---
Date Performed: 12/14/2016 Time Performed: 20:12:44 PTAGE: 36 years EKG: SINUS TACHYCARDIA NONSPECIFIC ST ELEVATION ABNORMAL RHYTHM ECG NO PREVIOUS TRACING DOCTOR: Caron Hinojosa Interpretating Date/Time 12/15/2016 13:55:53
[2016-12-15 20:00] VITALS: BP 108/63; PULSE 95; RESP 17; TEMP 100.8; O2SAT 97
[2016-12-15] MEDS: HYDROmorphone HCL PF 1 MG/ML VIAL IV PUSH PRN (21:03)
[2016-12-16] VITALS: BP 102/61; PULSE 81; RESP 17; TEMP 98.7; O2SAT 98
[2016-12-16] MEDS: ACETAMINOPHEN/HYDROcodone 325 MG/7.5 MG TAB PO PRN ×4 (00:38→23:04)
[2016-12-16] MEDS: HYDROmorphone HCL PF 1 MG/ML VIAL IV PUSH PRN ×3 (05:00→18:22)
[2016-12-16] MEDS: SODIUM CHLORIDE 0.9% FLUSH 10 ML FLUSH IV FLUSH SCH ×2 (07:04→21:00)
[2016-12-16] MEDS: BISACODYL 10 MG SUPP RECTAL PRN (07:51)
[2016-12-16 08:00] VITALS: BP 129/85; PULSE 77; RESP 16; TEMP 96.6; O2SAT 100
--- NOTE | 2016-12-16 10:38 | HHI.PR ---
Subjective Remarks Follow-up for pyelonephritis. The patient is feeling better today. She did have fever overnight. She's been tolerating diet. She is having some white and itching vaginal discharge today. Objective Vitals Vital Signs Date Time Temp Pulse Resp B/P Pulse Ox O2 Delivery O2 Flow Rate FiO2 12/16/16 08:00 96.6 77 16 129/85 100 12/16/16 00:00 98.7 81 17 102/61 98 12/15/16 20:00 100.8 95 17 108/63 97 12/15/16 12:00 98.4 67 16 108/75 100 I/O 12/15/16 12/15/16 12/15/16 12/16/16 12/16/16 12/16/16 07:00 15:00 23:00 07:00 15:00 23:00 Intake Total 990 ml 667 ml 1255 ml 985 ml Balance 990 ml 667 ml 1255 ml 985 ml Intake Oral 240 ml 480 ml 240 ml IV Total 750 ml 667 ml 775 ml 745 ml # Voids 2 4 2 2 Result Diagram: 12/15/16 0435 12/15/16 0435 Imaging Last Impressions Abdomen/Pelvis CT 12/14/162004 Signed Impressions: Service Date/Time: Wednesday, December 14, 2016 22:32 - CONCLUSION: 1. No acute findings identified within the abdomen and pelvis. Specifically no hydronephrosis or renal calculi are seen. There is mild constipation. Bjorn Cade MD Chest X-Ray 12/14/161953 Signed Impressions: Service Date/Time: Wednesday, December 14, 2016 19:52 - CONCLUSION: 1. No active disease. Bjorn Cade MD Objective Remarks GENERAL: Well-developed well-nourished. In no acute distress. SKIN: Warm and dry. No lesions noted. HEENT: Normocephalic. Pupils equal and round. Mucous membranes pink and moist. CARDIOVASCULAR: Regular rate and rhythm. No murmur appreciated. RESPIRATORY: No accessory muscle use. Clear to auscultation. Breath sounds equal bilaterally. GASTROINTESTINAL: Abdomen soft, non-tender, nondistended. Bowel sounds x4. Bilateral CVA tenderness. MUSCULOSKELETAL: No obvious deformities. No clubbing or cyanosis. No edema. NEUROLOGICAL: Awake and alert. No focal neurological deficits. Moves upper and lower extremities spontaneously. Normal speech. PSYCHIATRIC: Appropriate mood and affect; insight and judgment normal. A/P Problem List: (1) Sepsis ICD Code: A41.9 Status: Acute (2) Pyelonephritis ICD Code: N12 Status: Acute (3) Lactic acidosis ICD Code: E87.2 Status: Acute Assessment and Plan 36-year-old female with a PMH Recurrent UTI and h/o IVDU who presented w/ complaints of abdominal pain, nausea/vomiting and fever: Sepsis: Temp 101.2, WBC 20, HR 103, Source-UTI. Initial lactic acid 2.8, now 1.2. Blood cultures with NGTD. Urine culture with Escherichia coli resistant only to ampicillin. Continue IV Ceftriaxone 1g Q24 hours. Pyelonephritis: CT Abd/Pelvis reviewed with no acute findings, no hydronephrosis or renal calculi. Continue w/ IV Abx as above. Adjust analgesics - continue Dag[place] 7.5 mg for pain scale, Tylenol for headache, and IV Dilaudid for breakthrough pain. Continue antiemetics as needed. Vaginal candidiasis: UA with few yeast. Patient complains of itching white vaginal discharge. Likely candidiasis from antibiotics as above. Topical clotrimazole cream. Encouraged probiotics/yogurt. DVT Prophylaxis: SCD/Teds. Written by Tod Tovar, acting as scribe for Dr. Lutz on 12/16/16 at 10:36. All or portions of this note were transcribed by ASHLEIGH Del Rio. I, Dr. Jaime Lutz personally performed the history, physical exam, and medical decision making; and confirmed the accuracy of the information in the transcribed note. Authenticated by Dr. Jaime Lutz on 12/16/16 at 17:30. Discharge Planning Continue IV antibiotics and follow-up cultures and monitor for continued clinical improvement. Possible discharge tomorrow if patient continues to improve. Problem Qualifiers (1) Sepsis: Qualified Code: A41.9 - Sepsis, due to unspecified organism Tod Tovar Dec 16, 2016 10:38 Rosa Lutz DO Dec 16, 2016 17:30
[2016-12-16 12:00] VITALS: BP 135/86; PULSE 69; RESP 16; TEMP 96.8; O2SAT 100
[2016-12-16] MEDS: cefTRIAXone INJ 1,000 MG in SODIUM CHLORIDE 0.9% INJ 100 ML IV SCH (12:17)
[2016-12-16 16:00] VITALS: BP 135/87; PULSE 68; RESP 17; TEMP 96.9; O2SAT 100
[2016-12-16 20:00] VITALS: BP 122/77; PULSE 75; RESP 17; TEMP 97.2; O2SAT 98
[2016-12-16] MEDS ORDERED: CLOTRIMAZOLE 1% VAG CREAM 45 GM TUBE VAGINAL SCH (21:00)
[2016-12-17] VITALS: BP 117/72; PULSE 61; RESP 17; TEMP 97; O2SAT 98
[2016-12-17] MEDS: HYDROmorphone HCL PF 1 MG/ML VIAL IV PUSH PRN ×2 (01:40→09:20)
[2016-12-17] MEDS: ACETAMINOPHEN/HYDROcodone 325 MG/7.5 MG TAB PO PRN (07:19)
[2016-12-17 08:00] VITALS: BP 134/78; PULSE 67; RESP 18; TEMP 97.5; O2SAT 100
[2016-12-17 08:19] VITALS: RESP 18
[2016-12-17] MEDS: BISACODYL 10 MG SUPP RECTAL PRN (09:20)
[2016-12-17] MEDS ORDERED: CIPR-9 PO (09:21)
[2016-12-17] MEDS: SODIUM CHLORIDE 0.9% FLUSH 10 ML FLUSH IV FLUSH SCH (09:22)
[2016-12-17] MEDS ORDERED: HYDR-3580 PO (09:22)
--- NOTE | 2016-12-17 09:22 | HHI.DCPOC ---
Discharge Care Plan Diagnosis: (1) Pyelonephritis (2) Sepsis Goals to Promote Your Health * To prevent worsening of your condition and complications * To maintain your health at the optimal level Directions to Meet Your Goals Take your medications as prescribed Follow your dietary instruction Follow activity as directed Keep your appointments as scheduled Take your immunizations and boosters as scheduled If your symptoms worsen call your PCP, if no PCP go to Urgent Care Center or Emergency Room Smoking is Dangerous to Your Health. Avoid second hand smoke Call the 24-hour hour crisis hotline for domestic abuse at Dunia Skelton PA-C Dec 17, 2016 9:22 am
--- NOTE | 2016-12-17 09:23 | HHI.DS ---
cc: Gillian Sharma MD Discharge Summary Admission Date Dec 14, 2016 at 21:46 Discharge Date: Dec 17, 2016 Admitting Diagnosis pyelonephritis, sepsis (1) Sepsis ICD Code: A41.9 Diagnosis: Principal (2) Pyelonephritis ICD Code: N12 Diagnosis: Principal (3) Lactic acidosis ICD Code: E87.2 Diagnosis: Secondary Procedures None. Brief History - From Admission This is a 36-year-old female with a H Recurrent UTI and h/o IVDU who presented to the ER w/ complaints of severe abdominal pain, nausea/vomiting and fever or 101.2. States she was recently hospitalized in [place] for similar complaints for 10 days and treated for UTI. States not d/c'd on antibiotics. Today, noted to have recurrent abdominal pain and fever. Denies recent IVDU. On arrival, BP 122/75, HR 103, O2 sat 100% on RA, Temp 101.2. WBC 20.1. Lactic Acid 2.8. U/a w/ significant UTI. Urine Drug Screen positive for Opiates and Marijuana. S/p Blood Cultures, Vanc/Zosyn in ER. CT Abd/Pelvis currently pending. CBC/BMP: 12/15/16 0435 12/15/16 0435 Significant Findings Laboratory Tests Test 12/14/16 12/15/16 20:30 04:35 Erythrocyte Sedimentation Rate 28 mm/hr (0-20) Sodium Level 135 MEQ/L (136-145) Estimat Glomerular Filtration 85 ML/MIN (>89) Rate Random Glucose 124 MG/DL (74-106) Lactic Acid Level 2.8 mmol/L (0.4-2.0) C-Reactive Protein 11.00 MG/DL (0.00-0.30) Albumin 2.9 GM/DL 2.4 GM/DL (3.4-5.0) (3.4-5.0) Lipase 35 U/L (73-393) Urine Opiates Screen POS (NEG) Urine Cannabinoids Screen POS (NEG) White Blood Count 20.1 TH/MM3 18.1 TH/MM3 (4.0-11.0) (4.0-11.0) Red Blood Count 3.76 MIL/MM3 3.42 MIL/MM3 (4.00-5.30) (4.00-5.30) Hemoglobin 10.4 GM/DL 9.2 GM/DL (11.6-15.3) (11.6-15.3) Hematocrit 30.4 % 28.8 % (35.0-46.0) (35.0-46.0) Neutrophils (%) (Auto) 87.2 % 75.1 % (16.0-70.0) (16.0-70.0) Lymphocytes (%) (Auto) 4.5 % (9.0-44.0) Neutrophils # (Auto) 17.6 TH/MM3 13.6 TH/MM3 (1.8-7.7) (1.8-7.7) Lymphocytes # (Auto) 0.9 TH/MM3 (1.0-4.8) Monocytes # (Auto) 1.6 TH/MM3 2.1 TH/MM3 (0-0.9) (0-0.9) Urine Turbidity HAZY (CLEAR) Urine Protein 100 mg/dL (NEG-TRACE) Urine Occult Blood SMALL (NEG) Urine Nitrite POS (NEG) Urine Leukocyte Esterase LARGE (NEG) Urine RBC 27 /hpf (0-3) Urine WBC Clumps FEW (NONE) Urine Bacteria MOD /hpf (NONE) Urine Mucus FEW /lpf (OCC) Urine Yeast (Budding) OCC (NONE) Monocytes (%) (Auto) 11.7 % (0.0-8.0) Chloride Level 110 MEQ/L (98-107) Blood Urea Nitrogen 5 MG/DL (7-18) Calcium Level 7.9 MG/DL (8.5-10.1) Total Protein 6.1 GM/DL (6.4-8.2) Imaging Last Impressions Abdomen/Pelvis CT 12/14/162004 Signed Impressions: Service Date/Time: Wednesday, December 14, 2016 22:32 - CONCLUSION: 1. No acute findings identified within the abdomen and pelvis. Specifically no hydronephrosis or renal calculi are seen. There is mild constipation. Bjorn Cade MD Chest X-Ray 12/14/161953 Signed Impressions: Service Date/Time: Wednesday, December 14, 2016 19:52 - CONCLUSION: 1. No active disease. Bjorn Cade MD PE at Discharge GENERAL: Well-developed well-nourished. In no acute distress. SKIN: Warm and dry. No lesions noted. HEENT: Normocephalic. Pupils equal and round. Mucous membranes pink and moist. CARDIOVASCULAR: Regular rate and rhythm. No murmur appreciated. RESPIRATORY: No accessory muscle use. Clear to auscultation. Breath sounds equal bilaterally. GASTROINTESTINAL: Abdomen soft, non-tender, nondistended. Bowel sounds x4. Bilateral CVA tenderness. MUSCULOSKELETAL: No obvious deformities. No clubbing or cyanosis. No edema. NEUROLOGICAL: Awake and alert. No focal neurological deficits. Moves upper and lower extremities spontaneously. Normal speech. PSYCHIATRIC: Appropriate mood and affect; insight and judgment normal. Pt update on day of discharge Follow up for pyelonephritis, sepsis. The patient reports feeling much better today. No further fevers. Tolerating oral intake. Right flank pain much improved. She wants to go home. Hospital Course 36-year-old female with a H Recurrent UTI and h/o IVDU who presented w/ complaints of abdominal pain, nausea/vomiting and fever: Sepsis: Temp 101.2, WBC 20, HR 103, Source-UTI. Initial lactic acid 2.8, now 1.2. Blood cultures with NGTD. Urine culture with Escherichia coli resistant only to ampicillin. Continue IV Ceftriaxone 1g Q24 hours. Sepsis resolved, afebrile. Pyelonephritis: CT Abd/Pelvis reviewed with no acute findings, no hydronephrosis or renal calculi. Continue w/ IV Abx as above. Adjust analgesics - continue [place] 7.5 mg for pain scale, Tylenol for headache, and IV Dilaudid for breakthrough pain. Continue antiemetics as needed. Patient much improved, afebrile. Discharge on Cipro 500mg po bid [id number]. Vaginal candidiasis: UA with few yeast. Patient complains of itching white vaginal discharge. Likely candidiasis from antibiotics as above. Topical clotrimazole cream. Encouraged probiotics/yogurt. DVT Prophylaxis: SCD/Teds. Case management consulted to assist arranging blue card to f/up with Dr. Sharma. Written by Dunia Skelton, acting as scribe for Dr. Lutz on 12/17/16 at 09:23. All or portions of this note were transcribed by ASHLEIGH Cintron. I , Dr. Jaime Lutz personally performed the history, physical exam, and medical decision making; and confirmed the accuracy of the information in the transcribed note. Authenticated by Dr. Jaime Lutz on 12/18/16 at 00:02. Pt Condition on Discharge: Stable Discharge Disposition: Discharge Home Discharge Time: <= 30 minutes Discharge Instructions DIET: Follow Instructions for: As Tolerated, No Restrictions Follow up Referrals: PCP Follow-up - 1 Week with Gillian Sharma MD New Orders: CBC WITH DIFF - 1 Week New Medications: Ciprofloxacin (Cipro) 500 Mg Tab 500 MG PO BID Infection #20 Ref 0 TAB Hydrocodone-Acetaminophen (Hydrocodone-Acetaminophen) 7.5-325 mg Tab 1 TAB PO Q6H PRN PAIN SCALE 6-10 #12 TAB Dunia Skelton PA-C Dec 17, 2016 09:23 Rosa Lutz DO Dec 18, 2016 00:01
[2016-12-17 10:14] LABS: AUTOMATED NEUTROPHIL # 6.5 TH/MM3 (1.8-7.7); BASOPHIL % 0.5 % (0.0-2.0); EOSINOPHIL # 0.2 TH/MM3 (0-0.4); EOSINOPHIL % 1.8 % (0.0-4.0); HEMO FLAGS DIFF FINAL; LYMPH % 20.5 % (9.0-44.0); LYMPHOCYTE # 1.9 TH/MM3 (1.0-4.8); MEAN CELL VOLUME 82.9 FL (80.0-100.0); MEAN CORPUSCULAR HEMOGLOBIN 28.1 PG (27.0-34.0); MEAN CORPUSCULAR HGB CONC 33.9 % (32.0-36.0); MONO % 8.1 % (0.0-8.0); NEUT % 69.1 % (16.0-70.0); PLATELET COUNT 224 TH/MM3 (150-450); RED CELL DISTRIBUTION WIDTH 15.4 % (11.6-17.2); WHITE BLOOD COUNT 9.4 TH/MM3 (4.0-11.0)
[2016-12-17 10:28] LABS: BICARBONATE 25.8 MEQ/L (21.0-32.0); POTASSIUM 3.5 MEQ/L (3.5-5.1)
== END 2016-12-17 10:35 | disposition home or self-care (01) | DRG 872 ==
LOC: NEPE 18:41 → NEDA 21:46 → N07B 23:47
PROVIDERS: ADMIT Hospitalist; ATTEND Hospitalist
DX: A41.9 Sepsis, unspecified organism (principal); E87.2 Acidosis; N10 Acute pyelonephritis; K59.09 Other constipation; B37.3 Candidiasis of vulva and vagina; B96.20 Unspecified Escherichia coli [E. coli] as the cause of diseases classified elsewhere
CPT/HCPCS: 71010; 74176; 80048; 80053; 80307; 81001; 83605; 83690; 83735; 84703; 85025; 85652; 86140; 87040; 87077; 87086; 87186; 93005; 96365; 96368; 96375; J0692; J0696; J1170; J2270; J2405; J2543; J3370; J7030; J7050

== ENCOUNTER 2017-06-23 01:24 | Inpatient (IN) | payer SELFPAY ==
[2017-06-23] VITALS (7 sets, daily range): BP systolic 110–130; BP diastolic 76–89; PULSE 86–116; RESP 18–22; TEMP 97.4–98.7; O2SAT 97–100
[~2017-06-23] VITALS: Ht 154.9 cm; Wt 47.7 kg
[~2017-06-23 01:24] MED LIST changes: +CIPR-9 PO; +HYDR-3580 PO; -METR-1 PO
[2017-06-23] MEDS ORDERED: SODIUM CHLOR 0.9% 1000 ML INJ 1,000 ML IV ONE (01:45)
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
[2017-06-23 02:31] LABS: ALKALINE PHOSPHATASE 86 U/L (45-117); TOTAL BILIRUBIN ADULT 0.4 MG/DL (0.2-1.0)
[2017-06-23 02:48] LABS: ALCOHOL LESS THAN 3 MG/DL (0-5); ALT (GPT) 43 U/L (10-53); ANION GAP 15 MEQ/L (5-15); AST (GOT) 34 U/L (15-37); BICARBONATE 20.8 MEQ/L (21.0-32.0); BLOOD UREA NITROGEN 18 MG/DL (7-18); CHLORIDE 104 MEQ/L (98-107); GLOMERULAR FILTRATION RATE 47 ML/MIN (>89); POTASSIUM 3.3 MEQ/L (3.5-5.1); SODIUM (NA) 140 MEQ/L (136-145)
--- NOTE | 2017-06-23 02:58 | RADRPT ---
EXAM DATE/TIME: 06/23/2017 02:34 [facility] COMPARISON: CHEST SINGLE AP, December 14, 2016, 19:52. INDICATIONS : Possible overdose. MEDICAL HISTORY : None. SURGICAL HISTORY : Right lower lung partially removed. ENCOUNTER: Initial ACUITY: 1 day PAIN SCORE: Non-responsive. LOCATION: Bilateral chest FINDINGS: A single view of the chest demonstrates the lungs to be symmetrically aerated without evidence of mas s, infiltrate or effusion. The cardiomediastinal contours are unremarkable. Osseous structures are intact. CONCLUSION: 1. No acute cardiopulmonary disease. Femi Shukla MD on June 23, 2017 at 2:57 Board Certified Radiologist. This report was verified electronically.
[2017-06-23] MEDS ORDERED: NITROGLYCERIN 2% OINT 1 GM PACKET TOP ONE (03:15)
[2017-06-23] MEDS ORDERED: ASPIRIN 81 MG CHEW TAB PO ONE (03:15)
[2017-06-23 03:16] LABS: AUTOMATED NEUTROPHIL # 18.3 TH/MM3 (1.8-7.7); BASOPHIL % 0.1 % (0.0-2.0); HEMATOCRIT 35.6 % (35.0-46.0); LYMPH % 7.5 % (9.0-44.0); LYMPHOCYTE # 1.7 TH/MM3 (1.0-4.8); MEAN CELL VOLUME 86.5 FL (80.0-100.0); MEAN CORPUSCULAR HEMOGLOBIN 29.3 PG (27.0-34.0); MEAN CORPUSCULAR HGB CONC 33.9 % (32.0-36.0); MONO % 9.9 % (0.0-8.0); NEUT % 82.5 % (16.0-70.0); PLATELET COUNT 329 TH/MM3 (150-450); RED BLOOD COUNT 4.12 MIL/MM3 (4.00-5.30); RED CELL DISTRIBUTION WIDTH 13.7 % (11.6-17.2); WHITE BLOOD COUNT 22.3 TH/MM3 (4.0-11.0)
[2017-06-23 03:23] LABS: HEMO FLAGS AUTO DIFF
[2017-06-23] MEDS ORDERED: NALOXONE HCL 0.4 MG/ML AMP IV PUSH PRN (03:45)
[2017-06-23] MEDS ORDERED: SODIUM CHLORIDE 0.9% FLUSH 10 ML FLUSH IV FLUSH PRN (03:45)
[2017-06-23] MEDS ORDERED: NITROGLYCERIN 0.4 MG SL 25 TABS/BTL SL PRN (03:45)
[2017-06-23] MEDS ORDERED: POTASSIUM CHLORIDE 20 MEQ CONTROLLED RELEASE TAB PO ONE (03:45)
[2017-06-23] MEDS ORDERED: SODIUM CHLOR 0.9% 1000 ML INJ 1,000 ML IV SCH (03:45)
[2017-06-23 03:49] LABS: PLATELET ESTIMATE SMEAR NORMAL (NORMAL); PLATELET MORPHOLOGY NORMAL (NORMAL); SCAN/DIFF AUTO DIFF CONFIRMED
[2017-06-23 03:52] LABS: BLOOD, URINE MOD (NEG); CALCIUM OXALATE CRYSTALS,URINE OCC /hpf; COMMENT (UR) CULT NOT INDICATED; CULTURE IF INDICATED CULT NOT INDICATED; GLUCOSE,URINE NEG (NEG); HYALINE CAST, URINE 2 /lpf (RARE); KETONE, URINE TRACE mg/dL (NEG); MUCUS URINE MOD /lpf (OCC); NITRITE,URINE NEG (NEG); SQUAMOUS EPITHELIAL CELL URINE 1 /hpf (0-5); URINE COLOR YELLOW (YELLW/STRAW)
[2017-06-23 03:56] LABS: BACTERIA, URINE RARE /hpf
[2017-06-23] MEDS ORDERED: HEPARIN-D5W 25,000 U/250 ML 250 ML IV PRN (05:00)
[2017-06-23 05:52] LABS: BASOPHIL % 0.2 % (0.0-2.0); HEMATOCRIT 34.3 % (35.0-46.0); HEMO FLAGS DIFF FINAL; LYMPH % 9.6 % (9.0-44.0); LYMPHOCYTE # 1.7 TH/MM3 (1.0-4.8); MEAN CORPUSCULAR HEMOGLOBIN 28.8 PG (27.0-34.0); MEAN CORPUSCULAR HGB CONC 32.8 % (32.0-36.0); MONO % 4.3 % (0.0-8.0); NEUT % 85.9 % (16.0-70.0); PLATELET COUNT 240 TH/MM3 (150-450); RED CELL DISTRIBUTION WIDTH 13.5 % (11.6-17.2); WHITE BLOOD COUNT 17.5 TH/MM3 (4.0-11.0)
[2017-06-23 05:57] LABS: APTT (PATIENT) 23.8 SEC (24.3-30.1); PROTHROMBIN TIME - PATIENT 11.4 SEC (9.8-11.6)
[2017-06-23 06:18] LABS: BICARBONATE 23.5 MEQ/L (21.0-32.0); POTASSIUM 3.4 MEQ/L (3.5-5.1)
[2017-06-23] MEDS ORDERED: CHLORHEXIDINE GLUCONATE 2 % 1 PACK (2 CLOTHS)(extra cloths) TOPICAL PRN (08:15)
[2017-06-23] MEDS ORDERED: LORazepam 2 MG/ML VIAL IV PUSH PRN ×4 (08:30)
[2017-06-23] MEDS ORDERED: LORazepam 2 MG TAB PO PRN (08:30)
[2017-06-23] MEDS ORDERED: LORazepam 1 MG TAB PO PRN (08:30)
[2017-06-23] MEDS ORDERED: FLUMAZENIL 0.5 MG/5 ML VIAL IV PUSH PRN (08:30)
[2017-06-23] MEDS ORDERED: POTASSIUM CHLORIDE 10 MEQ CONTROLLED RELEASE TAB PO ONE (08:30)
[2017-06-23] MEDS ORDERED: SODIUM CHLORIDE 0.9% FLUSH 10 ML FLUSH IV FLUSH SCH (09:00)
[2017-06-23] MEDS ORDERED: ATORVASTATIN 80 MG TAB PO ONE (10:00)
[2017-06-23 10:14] LABS: CKMB 5.7 NG/ML (0.5-3.6)
--- NOTE | 2017-06-23 10:23 | HHI.HP ---
HPI Service [facility] Hospitalists Primary Care Physician Unknown Admission Diagnosis OVERDOSE/ELEVATED TROPONIN Diagnoses: Chief Complaint: IVDU Overdose Travel History International Travel<30 Days: No Contact w/Intl Traveler <30 Da: No Traveled to Known Affected Are: No Sepsis Criteria SIRS Criteria (2 or more): Heart rate over 90, WBC > 47109, < 4000 or > 10% bands Sepsis Criteria (SIRS+source): Infect source susp/known Severe Sepsis (+one): Acute Oliguria/Renal Failure Criteria Outcome: Meets severe sepsis criteria History of Present Illness Written by Anitha Gray, acting as scribe for Dr. Lutz on 06/23/17 at 10: 08. This is a 36-year-old female with a past medical history significant for IV drug use, recurrent urinary tract infections and a history of right lower lobe lobectomy secondary to pneumonia with crack cocaine use 2004 who presented to [facility] ED after being found unresponsive at her home after injecting a combination of heroin and methamphetamine. 911 was contacted by patient's roommate and EMS found her with a GCS of 3 and bradypneic. Patient was given Narcan which she responded well to began to flail and screen. Patient was brought in to [facility] ED who was also found to have elevated troponin level with abnormal EKG. Patient has been admitted and cardiology has been consulted. Patient recalls dancing about 30 minutes following her IV drug injection and then began to feel "weird as if she was in a fantasy world" and fell backwards. She doesn't remember anything until she woke up in the ED. Patient states she was clean for 8 months prior to injecting yesterday. She states her relapse was caused by her boyfriend recently breaking up with her. She denies any other preceding symptoms such as chest pain, cough, shortness of breath, nausea or vomiting. She denies any complaints at present. Review of Systems Except as stated in HPI: all other systems reviewed are Neg Past Family Social History Past Medical History IV drug use Recurrent urinary tract infections recently admitted to this facility December 2016 for pyelonephritis History of right lower lobe lobectomy secondary to pneumonia and concomitant crack cocaine use Past Surgical History Right lower lobe lobectomy 2004 Reported Medications Patient denies taking any medications at home. Allergies: Coded Allergies: codeine (Unverified Allergy, Severe, Swelling, 06/23/17) Active Ordered Medications Current Medications Medications (Trade) Dose Ordered Sig/Shan Route Start Time Stop Time Status Last Admin (NS Flush) 2 ml UNSCH PRN IV FLUSH 06/23/17 03:45 (NS Flush) 2 ml BID IV FLUSH 06/23/17 09:00 06/23/17 09:03 (Narcan Inj) 0.4 mg UNSCH PRN IV PUSH 06/23/17 03:45 Sodium Chloride 1,000 ml @ 125 mls/hr Q8H IV 06/23/17 03:45 06/23/17 04:11 (Nitrostat Sl) 0.4 mg Q5M PRN SL 06/23/17 03:45 (Ecotrin Ec) 325 mg DAILY PO 06/24/17 09:00 (Heparin Inj) 5,000 units UNSCH PRN IV PUSH 06/23/17 11:00 (Heparin Inj) 2,500 units UNSCH PRN IV PUSH 06/23/17 11:00 Heparin Sodium/ Dextrose 250 ml @ 6 mls/hr TITRATE PRN IV 06/23/17 05:00 06/23/17 06:24 (Pneumovax-23 Inj) 25 mcg ONCE ONCE IM 06/24/17 09:00 06/24/17 09:01 (Flu (Quadrivalent) Vaccine Inj) 0.5 ml ONCE ONCE IM 06/24/17 09:00 06/24/17 09:01 Miscellaneous Information Patient in critical care unit? Ass... [id number] .XX 06/23/17 08:15 (Chlorhexidine 2% Cloth) 3 pack DAILY@04 TOPICAL 06/24/17 04:00 06/28/17 04:01 (Chlorhexidine 2% Cloth) 3 pack UNSCH PRN TOPICAL 06/23/17 08:15 06/28/17 08:14 (Romazicon Inj) 0.2 mg Q1M PRN IV PUSH 06/23/17 08:30 (Ativan) 1 mg Q4H PRN PO 06/23/17 08:30 (Ativan Inj) 1 mg Q4H PRN IV PUSH 06/23/17 08:30 (Ativan) 2 mg Q2H PRN PO 06/23/17 08:30 (Ativan Inj) 2 mg Q2H PRN IV PUSH 06/23/17 08:30 (Ativan Inj) 2 mg Q1H PRN IV PUSH 06/23/17 08:30 (Ativan Inj) 2 mg Q15M PRN IV PUSH 06/23/17 08:30 Family History Patient denies any family medical history of heart disease Maternal grandmother, , breast cancer. Social History Patient has a previous history of smoking crack cocaine but quit many years ago. She admits to IV drug use of heroin and methamphetamine last used yesterday. Prior to that, patient had been clean for 8 months. Patient denies any tobacco use or alcohol consumption. Patient is single. She is unemployed. Physical Exam Vital Signs Vital Signs Date Time Temp Pulse Resp B/P (MAP) Pulse Ox O2 Delivery O2 Flow Rate FiO2 06/23/17 08:36 100 21 06/23/17 06:00 97 06/23/17 05:53 98.7 102 22 130/89 (103) 97 06/23/17 04:24 06/23/17 04:11 109 18 116/83 (94) 97 Room Air 06/23/17 01:30 97.4 116 18 116/81 (93) 100 Physical Exam GENERAL: This is a well-nourished, well-developed patient, in no apparent distress. Awake and alert. Tearful. SKIN: No rashes, ecchymoses or lesions. Cool and dry. HEAD: Atraumatic. Normocephalic. No temporal or scalp tenderness. EYES: Pupils equal round and reactive. Extraocular motions intact. No scleral icterus. No injection or drainage. ENT: Nose without bleeding, purulent drainage. Throat without erythema, tonsillar hypertrophy or exudate. Uvula midline. Airway patent. NECK: Trachea midline. No JVD or lymphadenopathy. Supple, nontender, no meningeal signs. CARDIOVASCULAR: Regular rate and rhythm without murmurs, gallops, or rubs. RESPIRATORY: Clear to auscultation. Breath sounds equal bilaterally. No wheezes , rales, or rhonchi. GASTROINTESTINAL: Abdomen soft, non-tender, nondistended. No hepato-splenomegaly , or palpable masses. No guarding. MUSCULOSKELETAL: Extremities without clubbing, cyanosis, or edema. No joint tenderness, effusion, or edema noted. No calf tenderness. Negative Homans sign bilaterally. NEUROLOGICAL: Awake and alert. Cranial nerves II through XII intact. Motor and sensory grossly within normal limits. Five out of 5 muscle strength in all muscle groups. Normal speech. Laboratory Laboratory Tests Test 06/23/17 01:45 06/23/17 02:45 06/23/17 03:20 06/23/17 04:45 Blood Urea Nitrogen 18 Creatinine 1.28 Random Glucose 201 Total Protein 8.3 Albumin 4.0 Calcium Level 8.3 Alkaline Phosphatase 86 Aspartate Amino Transf (AST/SGOT) 34 Alanine Aminotransferase (ALT/SGPT) 43 Total Bilirubin 0.4 Sodium Level 140 Potassium Level 3.3 Chloride Level 104 Carbon Dioxide Level 20.8 Anion Gap 15 Estimat Glomerular Filtration Rate 47 Troponin I 0.31 Ethyl Alcohol Level LESS THAN 3 White Blood Count 22.3 Red Blood Count 4.12 Hemoglobin 12.1 Hematocrit 35.6 Mean Corpuscular Volume 86.5 Mean Corpuscular Hemoglobin 29.3 Mean Corpuscular Hemoglobin Concent 33.9 Red Cell Distribution Width 13.7 Platelet Count 329 Mean Platelet Volume 9.5 Neutrophils (%) (Auto) 82.5 Lymphocytes (%) (Auto) 7.5 Monocytes (%) (Auto) 9.9 Eosinophils (%) (Auto) 0.0 Basophils (%) (Auto) 0.1 Neutrophils # (Auto) 18.3 Lymphocytes # (Auto) 1.7 Monocytes # (Auto) 2.2 Eosinophils # (Auto) 0.0 Basophils # (Auto) 0.0 CBC Comment AUTO DIFF Differential Comment AUTO DIFF CONFIRMED Platelet Estimate NORMAL Platelet Morphology Comment NORMAL Red Cell Morphology Comment NORMAL Urine Color YELLOW Urine Turbidity HAZY Urine pH 6.0 Urine Specific [place] 1.017 Urine Protein 30 Urine Glucose (UA) NEG Urine Ketones TRACE Urine Occult Blood MOD Urine Nitrite NEG Urine Bilirubin NEG Urine Urobilinogen LESS THAN 2.0 Urine Leukocyte Esterase NEG Urine RBC Urine WBC 5 Urine Squamous Epithelial Cells 1 Urine Calcium Oxalate Crystals OCC Urine Bacteria RARE Urine Hyaline Casts 2 Urine Mucus MOD Microscopic Urinalysis Comment CULT NOT INDICATED Urine Opiates Screen POS Urine Barbiturates Screen NEG Urine Amphetamines Screen POS Urine Benzodiazepines Screen NEG Urine Cocaine Screen NEG Urine Cannabinoids Screen NEG Test 06/23/17 05:37 06/23/17 08:44 White Blood Count 17.5 Red Blood Count 3.90 Hemoglobin 11.2 Hematocrit 34.3 Mean Corpuscular Volume 88.0 Mean Corpuscular Hemoglobin 28.8 Mean Corpuscular Hemoglobin Concent 32.8 Red Cell Distribution Width 13.5 Platelet Count 240 Mean Platelet Volume 9.5 Neutrophils (%) (Auto) 85.9 Lymphocytes (%) (Auto) 9.6 Monocytes (%) (Auto) 4.3 Eosinophils (%) (Auto) 0.0 Basophils (%) (Auto) 0.2 Neutrophils # (Auto) 15.0 Lymphocytes # (Auto) 1.7 Monocytes # (Auto) 0.7 Eosinophils # (Auto) 0.0 Basophils # (Auto) 0.0 CBC Comment DIFF FINAL Differential Comment Prothrombin Time 11.4 Prothromb Time International Ratio 1.0 Activated Partial Thromboplast Time 23.8 Blood Urea Nitrogen 15 Creatinine 0.69 Random Glucose 88 Calcium Level 8.4 Sodium Level 142 Potassium Level 3.4 Chloride Level 109 Carbon Dioxide Level 23.5 Anion Gap 10 Estimat Glomerular Filtration Rate 95 Total Creatine Kinase 521 Troponin I 0.23 Result Diagram: 06/23/1737 06/23/1737 Caprini VTE Risk Assessment Caprini VTE Risk Assessment: No/Low Risk (score <= 1) Caprini Risk Assessment Model Point Value = 1 Point Value = 2 Point Value = 3 Point Value = 5 Age 41-60 Minor surgery BMI > 25 kg/m2 Swollen legs Varicose veins or History of unexplained or recurrent spontaneous Oral contraceptives or hormone replacement Sepsis (< 1 month) Serious lung disease, including pneumonia (< 1 month) Abnormal pulmonary function Acute myocardial infarction Congestive heart failure (< 1 month) History of inflammatory bowel disease Medical patient at bed rest Age 61-74 Arthroscopic surgery Major open surgery (> 45 min) Laparoscopic surgery (> 45 min) Malignancy Confined to bed (> 72 hours) Immobilizing plaster cast Central venous access Age >= 75 History of VTE Family history of VTE Factor V Leiden Prothrombin [id number] Lupus anticoagulant Anticardiolipin antibodies Elevated serum homocysteine Heparin-induced thrombocytopenia Other congenital or acquired thrombophilia Stroke (< 1 month) Elective arthroplasty Hip, pelvis, or leg fracture Acute spinal cord injury (< 1 month) Prophylaxis Regimen Total Risk Factor Score Risk Level Prophylaxis Regimen 0-1 Low Early ambulation 2 Moderate Order ONE of the following: *Sequential Compression Device (SCD) *Heparin 5000 units SQ BID 3-4 Higher Order ONE of the following medications: *Heparin 5000 units SQ TID *Enoxaparin/Lovenox 40 mg SQ daily (WT < 150 kg, CrCl > 30 mL/min) *Enoxaparin/Lovenox 30 mg SQ daily (WT < 150 kg, CrCl > 10-29 mL/min) *Enoxaparin/Lovenox 30 mg SQ BID (WT < 150 kg, CrCl > 30 mL/min) AND/OR *Sequential Compression Device (SCD) 5 or more Highest Order ONE of the following medications: *Heparin 5000 units SQ TID (Preferred with Epidurals) *Enoxaparin/Lovenox 40 mg SQ daily (WT < 150 kg, CrCl > 30 mL/min) *Enoxaparin/Lovenox 30 mg SQ daily (WT < 150 kg, CrCl > 10-29 mL/min) *Enoxaparin/Lovenox 30 mg SQ BID (WT < 150 kg, CrCl > 30 mL/min) AND *Sequential Compression Device (SCD) Assessment and Plan Assessment and Plan 36-year-old female with a past medical history significant for IV drug use, recurrent urinary tract infections and a history of right lower lobe lobectomy secondary to pneumonia with crack cocaine use 2004 who presented to [facility] ED after being found unresponsive at her home after injecting a combination of heroin and methamphetamine. Patient meets severe sepsis criteria with elevated white count 22.3, HR 116, acute renal failure with creatinine of 1.28 due to IV drug use/overdose - Patient given IV fluid bolus in the ED. Continue IV fluids - Monitor white count, trending down - UA not indicative of infection - Monitor urine output. Creatinine improving. Continue to monitor trend. - Continuous cardiac monitoring - Obtain lactic acid level IV drug use Overdose status post injection of methamphetamine and heroin - UDS positive for opiates and amphetamines. Patient denies any alcohol use. Ethyl alcohol less than 3. - Patient strongly counseled on cessation of all drug use especially IV drug use. - [facility] protocol - Monitor for withdrawal symptoms JERRI - secondary to sepsis/IVDU - IVF - Creatinine trending down to normal - Avoid nephrotoxic agents - Continue to monitor kidney function Elevated troponin ?NSTEMI - EKG personally reviewed showing ST depression in the inferior lateral leads - Await cardiology consultation, appreciate recommendations. - Patient started on heparin drip in the ED, continue - Lipitor 80 mg daily - Aspirin daily - Suspect due to IV drug use/demand ischemia - Initial troponin elevated at 0.31. Repeat troponin 0.23. Continue to trend cardiac enzymes. - Patient has no cardiac complaints - Continuous cardiac monitoring - keep NPO for now Hypokalemia - Patient given repletion - Repeat potassium level to monitor response History of right lower lobe lobectomy - Stable - Monitor respiratory status DVT prophylaxis - Patient on heparin drip This note was transcribed by misael Gray PA-C. I, Dr. Jaime Lutz personally performed the history, physical exam, and medical decision making; and confirmed the accuracy of the information in the transcribed note. Authenticated by Dr. Jaime Lutz on 06/23/17 at 12:30. I discussed with Dr. Ramirez (Cartography Technician). Dr. Ramirez states that patient can be discharged without obtaining Echocardiogram. Patient does not have any clinical signs of acute coronary syndrome. I had extensive discussion with patient regarding the importance of completely stopping her drug abuse habits including IV drugs. Patient appears to understand and shows motivation. We will discharge patient. No new medications. Discharge patient to home Condition on discharge: Improved Regular Diet as tolerated Ad [place] activity Rx written: No new meds. Follow-up with primary care physician within 1-2 weeks. Discussed Condition With Nursing staff, patient Physician Certification 2 Midnight Certification Type: Admission for Inpatient Services Order for Inpatient Services The services are ordered in accordance with Medicare regulations or non- Medicare payer requirements, as applicable. In the case of services not specified as inpatient-only, they are appropriately provided as inpatient services in accordance with the 2-midnight benchmark. Estimated LOS (days): 3 3 days is the estimated time the patient will need to remain in the hospital, assuming treatment plan goals are met and no additional complications. Post-Hospital Plan: Home Anitha Gray Jun 23, 2017 10:23 Rosa Lutz DO Jun 23, 2017 12:33
--- NOTE | 2017-06-23 10:32 | MB ---
cc: MEÑO MARSHALL DATE OF CONSULTATION 06/23/2017 REASON FOR CONSULTATION Evaluation of elevated troponin. HISTORY Sammie Lacy is a 36-year-old woman with a longstanding history of drug abuse. She has had a previous lung infection and had to have part of her right lung removed for a lung infection. She was brought in yesterday as a drug overdose. She is astounded when presented with this information as she did not think she did that many drugs. EMS found her apneic and gave her Narcan which brought her back around. She denies any chest pain or shortness of breath. Denies any heart problems. She has smoked tobacco, marijuana and used IV drugs, but denies any heart disease that she knows of. She has had multiple ER admissions and most of it for UTI's and vaginal infections from what I can see. At the present time, she is not having any cardiovascular complaints. PAST SURGERIES Only notable for the partial right lung removal. ALLERGIES INCLUDE CODEINE. PHYSICAL EXAM This is a thin white female alert and oriented no acute distress. VITAL SIGNS: Charted. HEENT: Exam unremarkable. NECK: No JVD, no bruits. CHEST: Clear to auscultation. CARDIAC: Exam S1-S2 regular rate and rhythm, 1/6 early peaking systolic ejection murmur. ABDOMEN: Soft and nontender. No masses or organomegaly. EXTREMITIES: No clubbing, cyanosis or edema. Pulses are intact. EKG is normal. Troponin is mildly elevated at 0.31 and started to climb to 0.23. Toxicology screen was positive for amphetamines and opiates. IMPRESSION Status post drug overdose. Troponin is slightly elevated probably secondary to the near respiratory arrest and the drug overdose. Her EKG is normal and does not show any active signs of ischemia. I do not think she needs a cardiac workup beyond having an echo Doppler study. I am going ahead and ordering an echo Doppler study. I will be available to follow up as needed. MD NAVA Rosen/J LUIS /10:17 AM /10:22 AM
[2017-06-23] MEDS ORDERED: HEPARIN SODIUM - IV 10,000 UNITS/10 ML VIAL IV PUSH PRN ×2 (11:00)
[2017-06-23 14:27] LABS: MAGNESIUM 2.1 MG/DL (1.5-2.5)
[2017-06-24] MEDS ORDERED: CHLORHEXIDINE GLUCONATE 2 % 1 PACK (2 CLOTHS)(taper/protocol) TOPICAL SCH (04:00)
--- NOTE | 2017-06-24 07:39 | EKG ---
Date Performed: 06/23/2017 Time Performed: 01:35:35 PTAGE: 36 years EKG: SINUS TACHYCARDIA POSSIBLE LEFT ATRIAL ENLARGEMENT MODERATE ST DEPRESSION Compared to the p revious tracing ST-T changes are more prominent and the heart rate is somewhat faster Clinical correl ation is recommended ABNORMAL ECG PREVIOUS TRACING : 12/14/2016 20.12 DOCTOR: Phill Hubbard Interpretating Date/Time 06/24/2017 07:39:09
--- NOTE | 2017-06-24 07:40 | EKG ---
Date Performed: 06/23/2017 Time Performed: 07:09:35 PTAGE: 36 years EKG: Sinus rhythm Compared to the previous tracing heart rate is slower and the ST T changes have resolved NORMAL ECG PREVIOUS TRACING : 06/23/2017 01.35 DOCTOR: Phill Hubbard Interpretating Date/Time 06/24/2017 07:39:50
[2017-06-24] MEDS ORDERED: PNEUMOCOCCAL POLYVALENT INJ 25 MCG/0.5 ML SYR IM ONE (09:00)
[2017-06-24] MEDS ORDERED: ASPIRIN EC 325 MG TABEC PO SCH (09:00)
[2017-06-24] MEDS ORDERED: INFLUENZA VIRUS VACCINE (QUADRIVALENT) 0.5 ML SYR IM ONE (09:00)
== END 2017-06-23 11:45 | disposition home or self-care (01) | DRG 917 ==
LOC: NEPE 01:24 → NEDA 03:40 → HIMN 04:35
PROVIDERS: ADMIT Hospitalist; ATTEND Hospitalist
DX: T40.1X4A Poisoning by heroin, undetermined, initial encounter (principal); R09.2 Respiratory arrest; N17.9 Acute kidney failure, unspecified; R40.2431 Glasgow coma scale score 3-8, in the field [EMT or ambulance]; E87.6 Hypokalemia; T43.624A Poisoning by amphetamines, undetermined, initial encounter; F11.90 Opioid use, unspecified, uncomplicated; F19.90 Other psychoactive substance use, unspecified, uncomplicated; Z90.2 Acquired absence of lung [part of]
CPT/HCPCS: 71010; 80048; 80053; 80307; 81001; 82550; 82552; 83735; 84443; 84484; 84703; 85025; 85610; 85730; 87641; 93005; 96360; J1644; J7030